=== PATIENT | male | born 1990 | race Caucasian/White ===

== ENCOUNTER 2024-07-27 21:51 | Emergency (ER) | payer OTHER, SELFPAY ==
[2024-07-27 21:56] VITALS: BP 141/88; PULSE 90; RESP 20; TEMP 36.5; O2SAT 97
--- NOTE | 2024-07-27 22:05 | PC.NURSE ---
pt states he is not willing to wait in the waiting room. pt advised to stay to be seen by a provider. states he will just come back another time. pt advised to return if symptoms get worse, verbalized understanding
== END 2024-07-27 22:05 | disposition left against medical advice (07) ==
LOC: ANHED 22:12
PROVIDERS: Emergency Provider Emergency Medicine
DX: R07.89 Other chest pain (principal)
CPT/HCPCS: 93005; 99199

== ENCOUNTER 2025-01-08 11:41 | Emergency (ER) | payer SELFPAY ==
--- NOTE | 2025-01-08 11:49 | ED.HA ---
HPI - Headache General Chief Complaint: Headache Stated Complaint: nausea/tension/headaches Time Seen by Provider: 01/08/25 11:49 Source: patient and RN notes reviewed Mode of arrival: ambulatory Limitations: no limitations History of Present Illness HPI Narrative: 34 y/o male presented for c/o headache, nausea and vomiting. Onset this morning. Says he woke this morning with these symptoms. He did not take anything for symptoms stating he does not want to affect his kidneys and liver. Reports he has not been able to eat today, has tolerated fluids. 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 Denies abdominal pain, fever, lethargy. Related Data Home Medications ?Medication ?Instructions ?Recorded ?Confirmed ?Last Taken ?Type No Home Medications 01/08/25 01/08/25 Unknown History Allergies Allergy/AdvReac Type Severity Reaction Status Date / Time No Known Allergies Allergy Mild Verified 01/08/25 11:51 Review of Systems Review of Systems: CONSTITUTIONAL: Denies body aches, fever, chills ENT: Denies rhinorrhea, congestion CARDIOVASCULAR: Denies chest pain, palpitations, or edema. RESPIRATORY: Denies cough or dyspnea. GASTROINTESTINAL: Endorses nausea, vomiting. Denies abdominal pain, diarrhea hematochezia, melena, hematemesis GENITOURINARY: Denies dysuria, hematuria, or CVA tenderness. SKIN: Denies rash, itching, or wounds. MUSCULOSKELETAL: Denies back pain, joint pain, or myalgia. NEUROLOGIC: reports headache, Denies numbness, tingling, or weakness. All systems reviewed & are unremarkable except as noted in HPI and below PMFSH Comments At time of signature, I have reviewed and agree with nursing past medical, surgical, social and family history unless otherwise noted. Please see nursing chart for further information. There is no relevant family history pertinent to the presenting complaint Exam Narrative: GENERAL: Well-appearing, and in no acute distress. EYES: EOMI. Conjunctivae normal. ENT: Mucous membranes pink and moist. CHEST: No respiratory distress. Clear to auscultation. HEART: Regular rate and rhythm. No murmur appreciated. Normal peripheral pulses. ABDOMEN: abd soft, nondistended, normal active bowel sounds. nontender abdomen: No guarding, rebound tenderness, asymmetry EXTREMITIES: Normal range of motion. No edema. SKIN: Warm, dry, no rash. Capillary refill normal. Normal skin turgor. NEURO: No focal deficits. Alert and oriented x3. PSYCH: Normal affect. Course Course Emergency Course: Patient is aware of diagnosis, understands and agrees to treatment plan. Anticipatory guidance given. Patient agrees to follow-up as directed and is aware of reasons to seek care at the emergency department. Portions of this record may have been created with voice recognition software Level of Care: Express Care Visit MDM - Headache MDM Narrative Medical decision making narrative: Discussed physical exam findings , negative COVID and flu. Shared decision making patient declines any medicine RX for symptoms.. Advised supportive measures and signs/symptoms to go to the ER. Pt is appropriate for outpt treatment and f/u. Differential Diagnosis Differential diagnosis: Likely migraine, tension headache, headache and other (viral syndrome) Discharge Plan Discharge Clinical Impression: Headache, Vomiting Patient Disposition: Home Condition: Stable Instructions: Antibiotic Form, Acute Nausea and Vomiting (ED) Additional Instructions: Your rapid covid/flu test was negative today. It may be too early to detect the virus, therefore we recommend retesting at home in 1-2 days Continue to follow general precautions: frequent handwashing, wear a mask, isolate/social distance, and avoid crowds if you have a fever. You must be fever free for 24 hours without the use of fever reducing medication (Tylenol/ibuprofen) before returning to work/school/crowds. for symptoms: Stay hydrated. Take small sips of fluid containing electrolytes frequently. Clear liquids (broth, jello, tea, sprite, pedialyte) slowly advance to [place] foods (bananas, rice, applesauce, toast, crackers) Avoid fatty, greasy, fried or spicy foods. Limit dairy until symptoms are improved. You should go to the hospital if you experience persistent nausea and vomiting that does not resolve and does not allow you to tolerate any food or fluids, fevers, increasing abdominal pain, persistent diarrhea, dizziness, fainting, or for any other concerns. Follow up with primary care provider in 3 days. Patient Language: Italian Prescriptions: No Action No Home Medications Follow-up/Referrals: PHYSICIAN,EMERGENCY MANAGEMENT CONSULTANT [Primary Care Provider] - Stand Alone Forms: Work/School Release IP Time of Disposition: 12:18
[2025-01-08 11:51] VITALS: BP 143/97; PULSE 72; RESP 18; TEMP 36.4; O2SAT 99
[2025-01-08 12:14] LABS: EDCOVIDSCREEN Negative (Negative)
[2025-01-08 12:16] LABS: EDINFLUASCREEN Negative (Negative); EDINFLUBSCREEN Negative (Negative)
--- OUTSIDE RECORDS SUMMARY | 2025-01-08 12:24 | XMS_ITS | Clinical Summary ---
Author Organization [facility] Address [address] [place] [address] Care Team Providers Care Oxidation Operator Name Role Phone No, Physician Primary Care Provider [phone] Андрей Herrera DO Unavailable [phone] Allergies No known active allergies Medications methylPREDNISol one (MEDROL DOSEPACK) 4 mg Dosepack follow package directions 21 tablet 8 Active Additional Information Patient not taking.Reported on 08/18/2018 ondansetron (ZOFRAN) 4 mg tablet Take 1 tablet (4 mg total) by mouth every 6 (six) hours 12 tablet 3 Active LORazepam (Ativan) 1 mg tablet Take 1 tablet (1 mg total) by mouth 3 (three) times a day as needed for anxiety for up to 8 doses 8 tablet 4 Active Active Problems Problem Noted Date Diagnosed Date Tonsillitis 12/17/2017 Assessment & Plan (12/17/2017 6:06 AM CDT): ENT was consulted. Repeat CT was obtained which showed resolution of area of concerning for possible peritonsillar abscess. Patient adequately is responding to clindamycin and Decadron. He is cleared from ENT standpoint to be discharged home with follow-up with ENT in output patient office. Peritonsillar cellulitis 12/17/2017 Assessment & Plan (12/17/2017 6:07 AM CDT): Continue with clindamycin and Decadron Patient to be discharged home with ENT follow-up as discussed above. Smoker 12/17/2017 Assessment & Plan (12/17/2017 6:07 AM CDT): Discussed health hazards associated with smoking and advised smoking cessation. Tonsil, abscess Family History Medical History Relation Name Comments Heart disease Other Relation Name Status Comments Mother MS, hypothyroid ism,degenerative back dx Other Social History Tobacco Use Types Packs/Day Years Used Date Smoking Tobacco: Some Days Cigarettes Smokeless Tobacco: Never Tobacco Cessation:Ready to Q uit: No Alcohol Use Standard Drinks/Week Comments Yes 0 (1 standard drink = 0.6 oz pur e alcohol) occasionally Personal Safety Answer Date Recorded Have you ever been in or are you currently in a harmful physical or emotional relationship or is someone making you feel afraid or unsafe? Denies 10/23/2023 Sex and Gender Information Value Date Recorded Sex Assigned at Not on file Legal Sex Male 2:35 AM CDT Gender Identity Not on file Sexual Orientation Not on file Obstetrics History Last Filed Vital Signs Vital Sign Reading Time Taken Comments Blood Pressure 145/86 10/23/2023 9:49 PM CDT Pulse 73 10/23/2023 9:49 PM CDT Temperature 37.3 C (99.2 F) 10/23/2023 9:49 PM CDT Respiratory Rate 16 10/23/2023 9:49 PM CDT Oxygen Saturation 96% 10/23/2023 9:49 PM CDT Inhaled Oxygen Concentration - - Weight 96.2 kg (212 lb) 05/07/2023 12:42 AM APPOINTMENT SPECIALIST Height 180.3 cm (5' 11) 05/07/2023 12:42 AM APPOINTMENT SPECIALIST Body Mass Index 29.57 05/07/2023 12:42 AM APPOINTMENT SPECIALIST Plan of Treatment Health Maintenance Due Date Last Done Comments Depression Screening 1990 Hepatitis C Screening 1990 DTaP/Tdap/Td Vaccine (1 - Tdap) 2001 Varicella Vaccines (1 of 2 - 13+ 2-dose series) 11/08/2003 Hepatitis B Screening 2008 Regular Well Visit/Exam 18-64 2008 Pneumococcal vaccine <65 (1 of 2 - PCV) 2009 HPV Vaccines (1 - 3-dose SCDM series) 2017 Covid-19 Vaccine (3 - season) 01/29/202408/2020, 01/10/2021 Influenza Vaccine (#1) 2025 Advance Directives For more information, please contact: [phone] * Full Code (Latest Code Status on File) Date Activated Date Inactivated Comments 12/16/2017 10:30 PM 12/17/2017 7:18 PM * Full Code Date Activated Date Inactivated Comments 12/16/2017 9:48 AM 12/16/2017 10:30 PM Care Teams Oxidation Operator Relationship Specialty Start Date End Date No, Physician PCP - General 12/15/17 Андрей Herrera DO Surgeon Otolaryngology 12/17/17
--- OUTSIDE RECORDS SUMMARY | 2025-01-08 12:24 | XMS_ITS | Clinical Summary ---
Author Organization [facility] Address [address] [place] [address] Phone Care Team Providers Care Principal Automation Engineer Name Role Phone Provider, None Primary Care Provider Unavailabl e Allergies No known active allergies Medications hydrOXYzine (VISTARIL) 25 MG Capsule Take 1 Capsule by mouth 3 times daily as needed for Anxiety. 30 Capsule 08/09/2022 Active Social History Tobacco Use Types Packs/Day Years Used Date Smoking Tobacco: Some Days Cigarettes Smokeless Tobacco: Never Tobacco Cessation:Ready to Q uit: Not Asked; Counseling Given: Not Answered Alcohol Use Standard Drinks/Week Comments Yes 2 (1 standard drink = 0.6 oz pur e alcohol) Sex and Gender Information Value Date Recorded Sex Assigned at Not on file Legal Sex Male 7:08 PM CDT Gender Identity Not on file Sexual Orientation Not on file Last Filed Vital Signs Vital Sign Reading Time Taken Comments Blood Pressure 140/86 08/09/2022 9:30 PM CDT Pulse 75 08/09/2022 9:30 PM CDT Temperature 36.7 C (98 F) 08/09/2022 7:31 PM CDT Respiratory Rate 12 08/09/2022 9:30 PM CDT Oxygen Saturation 98% 08/09/2022 9:30 PM CDT Inhaled Oxygen Concentration - - Weight 88.9 kg (196 lb) 08/09/2022 7:31 PM CDT Height 180.3 cm (5' 11) 08/09/2022 7:31 PM CDT Body Mass Index 27.34 08/09/2022 7:31 PM CDT Plan of Treatment Health Maintenance Due Date Last Done Comments Hepatitis C Virus (HCV) Screening 1990 TdaP Immunization 1990 Hepatitis B Immunization (1 of 3 - 19+ 3-dose series) 2009 Human Papillomavirus (HPV) Immunization (1 - 3-dose SCDM series) 2017 SARS-COV-2 Immunization ( season) 2024 01/31/2021, 01/10/2021 Influenza Immunization (#1) 2025 Respiratory Syncytial Virus (RSV) Immunization (Adult) (1 - 1-dose 75+ series) 2065 Meningococcal Immunization (ACWY) Aged Out No longer eligible b ased on patient's age to complete this topic Pneumococcal Immunization Combined Aged Out No longer eligible b ased on patient's age to complete this topic Rotavirus Immunization Aged Out No lo nger eligible based on patient's age to complete this topic Care Teams Principal Automation Engineer Relationship Specialty Start Date End Date Provider, None [place] PCP - General 08/09/22
== END 2025-01-08 12:24 | disposition home or self-care (01) ==
PROVIDERS: Emergency Provider Nurse Practitioner Family
DX: R51.9 Headache, unspecified (principal); R11.2 Nausea with vomiting, unspecified; Z20.822 Contact with and (suspected) exposure to COVID-19
CPT/HCPCS: 87426; 87804; 99212; G0463

== ENCOUNTER 2025-05-20 16:46 | Emergency (ER) | payer SELFPAY ==
--- NOTE | 2025-05-20 16:47 | ED.BURNSMOKE ---
HPI - Burn/Smoke Inhalation General Chief complaint: Burn/Smoke Inhalation Stated complaint: Burn on Left Foot Time Seen by Provider: 05/20/25 16:46 Source: patient Mode of arrival: ambulatory Limitations: no limitations History of Present Illness HPI Narrative: Brendon is a 34-year-old female patient presenting to the clinic today with complaints of a burn to the left foot. He reports he burned his foot with some hot water. Has a second-degree burn to the top of foot this becoming more painful. States this happened 2 days ago. Has been applying Vaseline over the wound. No fevers, chills, body aches. No discharge coming from the burn. Tetanus is unknown Related Data Allergies Allergy/AdvReac Type Severity Reaction Status Date / Time No Known Allergies Allergy Mild Verified 01/08/25 11:51 Review of Systems Review of Systems: Pertinent positives per HPI. Patient denies any fever, chills, rash, headache, visual changes, dizziness, cough, runny nose, sore throat, shortness of breath, chest pain, palpitations, nausea, vomiting, diarrhea, constipation, abdominal pain, or any urinary issues. PMFSH Comments At the time of my signature, I reviewed and agree with the nursing past medical, surgical, social, and family history. There is no relevant family history pertinent to the patient complaint. Exam Narrative: General: Well-developed, well nourished, in no apparent distress Head: Normocephalic, atraumatic. Cardio: Regular rate and rhythm, s1 and s2 normal, no murmur appreciated. Resp: Clear to auscultation bilaterally, no rhonchi, rales, wheezing or rubs. Integumentary: [place], warm, and dry, open second-degree burn to the left dorsal foot measuring 6.5cm x 4 cm. Localized redness, no purulent discharge Course Course Level of Care: Express Care Visit Vital Signs Vital signs: Vital Signs Temperature 36.7 C 05/20/25 16:52 Pulse Rate 71 05/20/25 16:52 Respiratory Rate 20 05/20/25 16:52 Blood Pressure 172/144 H 05/20/25 16:52 Pulse Oximetry 98 05/20/25 16:52 Oxygen Delivery Room Air 05/20/25 16:52 Temperature 36.7 C 05/20/25 16:52 Pulse Rate 71 05/20/25 16:52 Respiratory Rate 20 12/22/25 16:52 Blood Pressure 172/144 H 05/20/25 16:52 Pulse Oximetry 98 05/20/25 16:52 Oxygen Delivery Room Air 05/20/25 16:52 MDM MDM Narrative Medical decision making narrative: At the time of visit patient is resting comfortably on the exam table. Patient appears to be nontoxic. Complaints of a burn to the left foot. He reports he burned his foot with some hot water. Has a second-degree burn to the top of foot this becoming more painful. States this happened 2 days ago. Has been applying Vaseline over the wound. No fevers, chills, body aches. No discharge coming from the burn. Tetanus is unknown. Open second-degree burn to the left dorsal foot measuring 6.5cm x 4 cm. Localized redness, no purulent discharge. Tetanus ordered. Silvadene dressing ordered Plan: I suspect patient has a non infected second-degree burn to the left dorsal foot. Prescription for Silvadene was sent to the pharmacy. Wound was cleansed in the clinic today and Silvadene dressing was applied. Tetanus was updated. Work note was given for today. Supportive measures were discussed with the patient and they voiced understanding discharge instructions and agrees to treatment plan. Return precautions reviewed Differential Diagnosis Differential Diagnosis: Differential diagnostic considerations for burn/smoke inhalation include partial/full thickness burn, airway compromise, smoke inhalation, electrical burn toxic effect of carbon monoxide, sunburn. Discharge Plan Discharge Clinical Impression: Burn of second degree of left foot, initial encounter Patient Disposition: Home Condition: Stable Instructions: Antibiotic Form, Second-Degree Burn (ED) Additional Instructions: Tetanus was updated in the clinic today. No obvious sign of bacterial infection at this time. Leave bandage on for 24 hours then may remove and apply band aide covering as needed. Keep wound clean and dry Complete Silvadene dressings daily x7 days Watch for signs and symptoms of infection- redness, streaking, swelling, purulent discharge, or increase in pain. Follow up with your PCP in 2-3 days for wound check You have an elevated blood pressure in the clinic today and I recommend follow-up with primary care physician to have this reevaluated within the next week if symptoms persist. [place] Heart guidelines state that normal blood pressure is 120/80 or less. Anything over 120/80 is considered elevated and should be monitored. You may need to decrease you salt intake and eat a heart healthy diet to help lower you blood pressure, other treatments would include decreasing stress, weight loss, stop caffeine, and quit smoking. Your primary care provider can determine whether you need to start antihypertensive medications. Untreated high blood pressure can cause dizziness, headaches, visual changes, blindness, kidney failure, stroke, heart attack, and male impotence. Patient Language: Greenlandic Prescriptions: New silver sulfadiazine [Silvadene] 1 % cream 1 applic topical DAILY 7 Days Qty: 25 0RF Rx Instructions: apply a 1.5 mm thickness Follow-up/Referrals: UNKNOWN,DOCTOR [Non-Staff] Stand Alone Forms: Work/School Release IP Time of Disposition: 17:32 Quality NIHSS Nursing Documentation ED NIHSS nursing documentation: reviewed/agree
[2025-05-20 16:52] VITALS: BP 172/144; PULSE 71; RESP 20; TEMP 36.7; O2SAT 98
[2025-05-20] MEDS: SILVER SULFADIAZINE 1% CR 50 GM JAR (*BKC) 1 APPLIC TOPICAL (17:11)
[2025-05-20] MEDS: TETANUS,DIPHTHERIA,AC PERTUSSIS ADULT (0.5 ML) BOOSTRIX IM (17:12)
--- OUTSIDE RECORDS SUMMARY | 2025-05-20 17:21 | XMS_ITS | Clinical Summary ---
Author Organization [facility] Address [address] [place] [address] Phone Care Team Providers Care Audiovisual Librarian Name Role Phone Provider, None Primary Care [...] Virus (HCV) Screening 1990 TdaP Immunization 1990 Varicella Immunization (1 of 2 - 13+ 2-dose series) 11/08/2003 Hepatitis B Immunization (1 of 3 - 19+ 3-dose series) 2009 Influenza Immunization (#1) 2025 SARS-COV-2 Immunization ( - 2024- season) 2025 01/31/2021, 01/10/2021 Respiratory Syncytial Virus (RSV) Immunization (Adult) (1 - 1-dose 75+ series) 2065 Human Papillomavirus (HPV) Immunization (No Doses Required) Completed Meningococcal Immunization (ACWY) Aged Out No longer eligible b ased on patient's age to complete this topic Pneumococcal Immunization Combined Aged Out No longer eligible b ased on patient's age to complete this topic Rotavirus Immunization Aged Out No lo nger eligible based on patient's age to complete this topic Care Teams Audiovisual Librarian Relationship Specialty Start Date End Date Provider, None [place] PCP - General 08/09/22
--- OUTSIDE RECORDS SUMMARY | 2025-05-20 17:21 | XMS_ITS | Clinical Summary ---
Author Organization [facility] Address [address] [place] [address] Care Team Providers Care Lead Software Qa Engineer Name Role Phone No, Physician Primary Care Provider [phone] Андрей Herrera DO Unavailable [phone] Allergies No known active allergies Medications methylPREDNISol [...] 96.2 kg (212 lb) 05/07/2023 12:42 AM MACHINE MILKER Height 180.3 cm (5' 11) 05/07/2023 12:42 AM MACHINE MILKER Body Mass Index 29.57 05/07/2023 12:42 AM MACHINE MILKER Plan of Treatment Health Maintenance Due Date Last Done Comments Depression Screening 1990 Hepatitis C Screening 1990 DTaP/Tdap/Td Vaccine (1 - Tdap) 2001 Varicella Vaccines (1 of 2 - 13+ 2-dose series) 11/08/2003 Hepatitis B Screening 2008 Regular Well Visit/Exam 18-64 2008 Pneumococcal vaccine <65 (1 of 2 - PCV) 2009 HPV Vaccines (1 - 3-dose SCDM series) 2017 Covid-19 Vaccine ( - season) 01/28/202508/2020, 01/10/2021 Influenza Vaccine (#1) 2025 Advance Directives For more information, please contact: [phone] * Full Code (Latest Code Status on File) Date Activated Date Inactivated Comments 12/16/2017 10:30 PM 12/17/2017 7:18 PM * Full Code Date Activated Date Inactivated Comments 12/16/2017 9:48 AM 12/16/2017 10:30 PM Care Teams Lead Software Qa Engineer Relationship Specialty Start Date End Date No, Physician PCP - General 12/15/17 Андрей Herrera DO Surgeon Otolaryngology 12/17/17
--- NOTE | 2025-05-20 17:41 | PC.NURSE ---
B/P 184/120 manually at discharge. ENGINEERING MECHANIC aware.
== END 2025-05-20 17:30 | disposition home or self-care (01) ==
PROVIDERS: Emergency Provider Nurse Practitioner Family
DX: T25.222A Burn of second degree of left foot, initial encounter (principal); X11.8XXA Contact with other hot tap-water, initial encounter; Z23 Encounter for immunization
CPT/HCPCS: 16020; 90471; 90715; 99213; A9270; G0463